=== PATIENT | male | born 1950 | race African-American/Black ===

== ENCOUNTER 2017-08-24 12:07 | Inpatient (IN) | payer OTHER ==
[~2017-08-24] VITALS: Ht 165.1 cm; Wt 87.2 kg
[2017-08-24] VITALS (9 sets, daily range): BP systolic 117–138; BP diastolic 65–82
[~2017-08-24 12:07] MED LIST: ADVIL,NUPRIN,M200 MG PO; Colace PO; GLIMEPIRIDE1 MG PO; Hydrodiuril,Oretic,E PO; JANUMET 50/11 TABLET PO; LANTUS 3 M100 UNITS1 SC; LISINOPRIL20 MG PO; MELOXICAM7.5 MG PO; MICROZIDE12.5 M1 PO; MOBIC15 MG PO; NOVOLOG PE100 UNITS/ SC; Oscal 500 w/Vitamin PO; PERCOCET 5/31 TABLET PO; Plavix PO; SIMVASTATIN20 MG PO; TYLENOL REGULA325 MG PO; ZESTRIL20 MG PO; ZOCOR20 MG PO
[2017-08-24 12:36] LABS: BASOPHIL (%) 0.4 % (0-1); EOSINOPHIL (%) 0.4 % (0-5); HEMATOCRIT 48.6 % (38.0-50.0); HEMOGLOBIN 16.7 G/DL (12.5-16.6); IMMATURE GRANULOCYTE (%) 0.6 % (0.0-0.7); LYMPHOCYTE (%) 21.1 % (15-42); LYMPHOCYTE COUNT 1.1 K/uL (1.0-2.8); MCH 29.2 PG (29.0-34.0); MCHC 34.4 G/DL (30.0-36.0); MCV 85.1 FL (86-99); MONOCYTE (%) 11.7 % (3-12); MONOCYTE COUNT 0.6 K/uL (0-0.8); NEUTROPHIL (%) 65.8 % (45-76); NEUTROPHIL COUNT 3.4 K/uL (1.8-6.4); PLATELET COUNT 184 K/uL (156-360); RBC DIS.WIDTH-CV 15.9 % (11.8-14.6); RBC DIS.WIDTH-SD 49.4 % (39-53); RED BLOOD COUNT 5.71 M/uL (4.00-5.50); WHITE BLOOD COUNT 5.2 K/uL (4.1-10.2)
[2017-08-24 12:47] LABS: ALBUMIN 4.2 g/dL (3.2-4.8); CHLORIDE 103 mEq/L (99-109); POTASSIUM 4.1 mEq/L (3.7-5.4); SODIUM 136 mEq/L (136-147)
[2017-08-24 12:49] LABS: GLUCOSE 113 mg/dL (70-99); TOTAL PROTEIN 7.5 g/dL (6.4-8.3)
[2017-08-24 12:51] LABS: TOTAL BILIRUBIN 0.4 mg/dL (0.0-1.0)
[2017-08-24 12:53] LABS: ALKALINE PHOSPHATASE 47 IU/L (3-129); CREATININE 1.3 mg/dL (0.6-1.3); GFR ESTIMATE (CALCULATED) > 59 mL/min/ (58.99-99999)
[2017-08-24 12:54] LABS: UREA NITROGEN (BUN) 15 mg/dL (9-23)
[2017-08-24 12:55] LABS: AST (GOT) 32 IU/L (2-34)
[2017-08-24 12:56] LABS: ALT (GPT) 16 IU/L (3-49)
[2017-08-24 12:57] LABS: TROP-I INTERPRETATION POSITIVE
[2017-08-24 12:58] LABS: TROPONIN-I 4.06 ng/mL (0.0-0.30)
[2017-08-24 18:41] LABS: TROP-I INTERPRETATION POSITIVE; TROPONIN-I 12.26 ng/mL (0.0-0.30)
[2017-08-25] VITALS (19 sets, daily range): BP systolic 108–148; BP diastolic 58–96
[2017-08-25 06:24] LABS: BASOPHIL (%) 0.5 % (0-1); EOSINOPHIL (%) 0.3 % (0-5); HEMATOCRIT 45.6 % (38.0-50.0); HEMOGLOBIN 15.4 G/DL (12.5-16.6); IMMATURE GRANULOCYTE (%) 0.3 % (0.0-0.7); LYMPHOCYTE (%) 24.4 % (15-42); LYMPHOCYTE COUNT 1.5 K/uL (1.0-2.8); MCH 28.5 PG (29.0-34.0); MCHC 33.8 G/DL (30.0-36.0); MCV 84.4 FL (86-99); MONOCYTE (%) 16.6 % (3-12); MONOCYTE COUNT 1.1 K/uL (0-0.8); NEUTROPHIL (%) 57.9 % (45-76); NEUTROPHIL COUNT 3.7 K/uL (1.8-6.4); PLATELET COUNT 167 K/uL (156-360); RBC DIS.WIDTH-CV 15.9 % (11.8-14.6); RBC DIS.WIDTH-SD 48.9 % (39-53); WHITE BLOOD COUNT 6.3 K/uL (4.1-10.2)
[2017-08-25 06:56] LABS: TROP-I INTERPRETATION POSITIVE; TROPONIN-I 22.48 ng/mL (0.0-0.30)
[2017-08-25 07:09] LABS: CHLORIDE 100 MEQ/L (99-109); CREATININE 1.1 MG/DL (0.6-1.3); GFR ESTIMATE (CALCULATED) > 59 mL/min/ (58.99-99999); GLUCOSE 121 mg/dL (70-99); HDL CHOLESTEROL 24 MG/DL (Desirable>=40); LDL CHOLESTEROL 133 mg/dL (Desirable<100); NON-HDL CHOLESTEROL 153 mg/dL (Desirable<160); SODIUM 136 MEQ/L (136-147); TOTAL CHOLESTEROL 177 mg/dL (Desirable<200); TRIGLYCERIDES 102 MG/DL (Normal: <150); UREA NITROGEN (BUN) 16 mg/dL (9-23)
[2017-08-25 13:30] LABS: TROP-I INTERPRETATION POSITIVE; TROPONIN-I 16.63 ng/mL (0.0-0.30)
[2017-08-26 04:28] VITALS: BP 140/81
[2017-08-26 05:53] LABS: CHLORIDE 99 MEQ/L (99-109); CREATININE 1.2 MG/DL (0.6-1.3); GFR ESTIMATE (CALCULATED) > 59 mL/min/ (58.99-99999); GLUCOSE 169 mg/dL (70-99); POTASSIUM 4.2 MEQ/L (3.7-5.4); SODIUM 133 MEQ/L (136-147); UREA NITROGEN (BUN) 19 mg/dL (9-23)
[2017-08-26 07:45] VITALS: BP 135/75
[2017-08-26] MEDS ORDERED: CLOPIDOGREL75 MG PO (09:16)
[2017-08-26] MEDS ORDERED: LOPRESSOR25 MG PO (09:16)
[2017-08-26] MEDS ORDERED: ATORVASTATIN CA80 MG PO (09:16)
[2017-08-26] MEDS ORDERED: NICOTINE PATCH1 EAC2 TD (09:16)
[2017-08-26] MEDS ORDERED: ASPIR-LOW81 MG PO (09:16)
== END 2017-08-26 10:40 | disposition home or self-care (01) | DRG 247 ==
LOC: EME 12:07 → CATH 12:48 → 2SOUTH 13:52 → 4WEST 13:52 → ENRESERV 13:53 → CANRESERV 13:53 → ENRESERV 13:57 → 2SOUTH 14:11 → 4WEST 15:25 → ENRESERV 08-25 16:18 → 4EAST 08-25 20:02 → ENPENDDIS 08-26 → 4EAST 08-26 10:40
PROVIDERS: Emergency Medicine Emergency Medical Services; Internal Medicine Cardiovascular Disease
DX: I21.4 Non-ST elevation (NSTEMI) myocardial infarction (principal); I25.10 Atherosclerotic heart disease of native coronary artery without angina pectoris; E78.5 Hyperlipidemia, unspecified; F17.200 Nicotine dependence, unspecified, uncomplicated; I10 Essential (primary) hypertension; Z86.73 Personal history of transient ischemic attack (TIA), and cerebral infarction without residual deficits; E11.9 Type 2 diabetes mellitus without complications; I34.0 Nonrheumatic mitral (valve) insufficiency; I45.10 Unspecified right bundle-branch block; K21.9 Gastro-esophageal reflux disease without esophagitis; R09.02 Hypoxemia; E66.9 Obesity, unspecified; Z68.36 Body mass index [BMI] 36.0-36.9, adult
CPT/HCPCS: 71045; 80048; 80053; 80061; 82948; 83880; 84484; 85025; 85347; 87641; 93005; 93306; 94799; 99281; 99285; C1725; C1769; C1874; C1887; J0153; J1644; J1815; J1940; J2250; J2270; J3010; J3246

== ENCOUNTER 2017-11-23 17:20 | Inpatient (IN) | payer OTHER ==
[~2017-11-23] VITALS: Ht 160 cm; Wt 88.2 kg
[~2017-11-23 17:20] MED LIST changes: +ASPIR-LOW81 MG PO; +ATORVASTATIN CA80 MG PO; +CLOPIDOGREL75 MG PO; +LOPRESSOR25 MG PO; +NICOTINE PATCH1 EAC2 TD
[2017-11-23 18:17] LABS: BASOPHIL COUNT 0.1 K/uL (0-0.1); EOSINOPHIL (%) 1.6 % (0-5); EOSINOPHIL COUNT 0.1 K/uL (0-0.3); HEMATOCRIT 48.5 % (38.0-50.0); HEMOGLOBIN 16.4 G/DL (12.5-16.6); IMMATURE GRANULOCYTE (%) 0.4 % (0.0-0.7); LYMPHOCYTE COUNT 1.9 K/uL (1.0-2.8); MCH 28.2 PG (29.0-34.0); MCHC 33.8 G/DL (30.0-36.0); MCV 83.5 FL (86-99); MONOCYTE (%) 12.1 % (3-12); MONOCYTE COUNT 0.6 K/uL (0-0.8); NEUTROPHIL (%) 47.9 % (45-76); NEUTROPHIL COUNT 2.4 K/uL (1.8-6.4); PLATELET COUNT 181 K/uL (156-360); RBC DIS.WIDTH-CV 18.5 % (11.8-14.6); RBC DIS.WIDTH-SD 53.9 % (39-53); RED BLOOD COUNT 5.81 M/uL (4.00-5.50); WHITE BLOOD COUNT 5.1 K/uL (4.1-10.2)
[2017-11-23 18:25] LABS: ALBUMIN 4.1 g/dL (3.2-4.8); CHLORIDE 107 mEq/L (99-109); SODIUM 139 mEq/L (136-147)
[2017-11-23 18:27] LABS: GLUCOSE 119 mg/dL (70-99)
[2017-11-23 18:28] LABS: TOTAL PROTEIN 7.2 g/dL (6.4-8.3)
[2017-11-23 18:29] LABS: TOTAL BILIRUBIN 0.5 mg/dL (0.0-1.0)
[2017-11-23 18:31] LABS: ALKALINE PHOSPHATASE 58 IU/L (3-129); GFR ESTIMATE (CALCULATED) > 59 mL/min/ (58.99-99999)
[2017-11-23 18:32] LABS: UREA NITROGEN (BUN) 11 mg/dL (9-23)
[2017-11-23 18:33] LABS: AST (GOT) 11 IU/L (2-34)
[2017-11-23 18:34] LABS: ALT (GPT) 11 IU/L (3-49)
[2017-11-23 18:40] LABS: TROP-I INTERPRETATION NEGATIVE; TROPONIN-I < 0.01 ng/mL (0.0-0.30)
[2017-11-23 19:58] LABS: APPEARANCE CLEAR ((CLEAR)); BILIRUBIN NEGATIVE; BLOOD NEGATIVE; COLOR YELLOW ((YELLOW)); GLUCOSE (STRIP) 50; KETONES NEGATIVE; LEUKOCYTES NEGATIVE; NITRITE NEGATIVE; PROTEIN (STRIP) 100
[2017-11-23 20:00] LABS: BACTERIA RARE /HPF; EPITHELIAL CELLS RARE /HPF; MUCUS TRACE /LPF; RED BLOOD CELLS 0-5 /HPF (0-5); UCUL ADDED? NO; WHITE BLOOD CELLS 0-5 /HPF (0-5)
[2017-11-23 21:11] LABS: MAGNESIUM 1.8 mg/dL (1.3-2.7)
[2017-11-23 21:16] LABS: SERUM ETHYL ALCOHOL < 10 mg/dL
[2017-11-23 21:29] LABS: AMPHETAMINE NEGATIVE (500 ng/mL); BARBITURATES NEGATIVE (200 ng/mL); BENZODIAZEPINES NEGATIVE (150 ng/mL); BUPRENORPHINE NEGATIVE (10 ng/mL); COCAINE NEGATIVE (150 ng/mL); METHADONE NEGATIVE (200 ng/mL); METHAMPHETAMINE NEGATIVE (500 ng/mL); OPIATES (MORPHINE) NEGATIVE (100 ng/mL); OXYCODONE NEGATIVE (100 ng/mL); PHENCYCLIDINE NEGATIVE (25 ng/mL); PROPOXYPHENE NEGATIVE (300 ng/mL); THC CANNABINOIDS PRESUMPTIVE POSITIVE (50 ng/mL); TRICYCLIC ANTIDEPRESSANTS NEGATIVE (300 ng/mL)
[2017-11-23 22:25] VITALS: BP 155/74
[2017-11-23 22:55] LABS: HDL CHOLESTEROL 30 MG/DL (Desirable>=40); LDL CHOLESTEROL 81 mg/dL (Desirable<100); NON-HDL CHOLESTEROL 94 mg/dL (Desirable<160); TOTAL CHOLESTEROL 124 mg/dL (Desirable<200); TRIGLYCERIDES 66 MG/DL (Normal: <150)
[2017-11-24] MEDS ORDERED: METFORMIN HCL1000 MG PO (02:07)
[2017-11-24] MEDS ORDERED: AMLODIPINE BESY10 MG PO (02:10)
[2017-11-24] MEDS ORDERED: FENOFIBRATE54 M1 PO (02:11)
[2017-11-24] MEDS ORDERED: NOVOLIN N100 UNITS/ SC (02:18)
[2017-11-24] MEDS ORDERED: TRESIBA FL100 UNIT/1 SC (02:19)
[2017-11-24] MEDS ORDERED: NOVOLOG 10100 UNITS/ SC (02:20)
[2017-11-24] MEDS ORDERED: LYRICA75 MG PO (02:20)
[2017-11-24 04:21] VITALS: BP 166/76
[2017-11-24 05:34] LABS: TROP-I INTERPRETATION NEGATIVE; TROPONIN-I < 0.01 ng/mL (0.0-0.30)
[2017-11-24 07:15] VITALS: BP 158/74
[2017-11-24 12:21] VITALS: BP 157/72
[2017-11-24 15:28] VITALS: BP 151/80
[2017-11-24 16:12] VITALS: BP 159/74
[2017-11-24 19:36] VITALS: BP 165/79
[2017-11-25 00:05] VITALS: BP 151/70
[2017-11-25 04:25] VITALS: BP 164/79
[2017-11-25 05:49] LABS: HEMATOCRIT 45.2 % (38.0-50.0); MCHC 33.2 G/DL (30.0-36.0); MCV 84.3 FL (86-99); PLATELET COUNT 174 K/uL (156-360); RBC DIS.WIDTH-CV 18.5 % (11.8-14.6); RBC DIS.WIDTH-SD 55.6 % (39-53); RED BLOOD COUNT 5.36 M/uL (4.00-5.50); WHITE BLOOD COUNT 4.8 K/uL (4.1-10.2)
[2017-11-25 06:18] LABS: CHLORIDE 104 MEQ/L (99-109); CREATININE 1.1 MG/DL (0.6-1.3); GFR ESTIMATE (CALCULATED) > 59 mL/min/ (58.99-99999); SODIUM 136 MEQ/L (136-147); UREA NITROGEN (BUN) 16 mg/dL (9-23)
[2017-11-25 06:20] LABS: GLUCOSE 235 mg/dL (70-99)
[2017-11-25 07:50] VITALS: BP 145/68
[2017-11-25 12:05] VITALS: BP 139/71
[2017-11-25] MEDS ORDERED: NICOTINE PATCH1 EAC2 TD (15:24)
[2017-11-25 16:19] VITALS: BP 159/72
== END 2017-11-25 16:52 | disposition home or self-care (01) | DRG 65 ==
LOC: EME 17:20 → EDOF 20:47 → 4SOUTH 20:47 → ENRESERV 21:05 → 4SOUTH 22:19 → ENRESERV 11-24 12:08 → 5SOUTH 11-24 15:55 → ENPENDDIS 11-25 15:44 → 5SOUTH 11-25 16:52
PROVIDERS: Emergency Medicine; Hospitalist; Internal Medicine; Physician Assistant Medical
DX: I63.9 Cerebral infarction, unspecified (principal); R42 Dizziness and giddiness; E11.9 Type 2 diabetes mellitus without complications; K21.9 Gastro-esophageal reflux disease without esophagitis; I10 Essential (primary) hypertension; E78.5 Hyperlipidemia, unspecified; F17.210 Nicotine dependence, cigarettes, uncomplicated; I25.10 Atherosclerotic heart disease of native coronary artery without angina pectoris; M48.061 Spinal stenosis, lumbar region without neurogenic claudication; I71.4 Abdominal aortic aneurysm, without rupture; J44.9 Chronic obstructive pulmonary disease, unspecified; E66.9 Obesity, unspecified; G47.33 Obstructive sleep apnea (adult) (pediatric); F10.11 Alcohol abuse, in remission; M10.9 Gout, unspecified; I45.2 Bifascicular block; D45 Polycythemia vera; I25.2 Old myocardial infarction; Z95.5 Presence of coronary angioplasty implant and graft; Z79.4 Long term (current) use of insulin; Z79.82 Long term (current) use of aspirin; Z79.02 Long term (current) use of antithrombotics/antiplatelets; Z68.34 Body mass index [BMI] 34.0-34.9, adult
CPT/HCPCS: 70450; 70544; 70546; 70551; 71046; 80048; 80053; 80061; 81003; 82948; 83036; 83735; 84484; 84999; 85025; 85027; 93005; 93306; 93880; 99202; 99281; 99285; G0378; G0480; J1644; J1815; J7030

== ENCOUNTER 2017-12-18 17:44 | Inpatient (IN) | payer OTHER ==
[~2017-12-18] VITALS: Ht 165.1 cm; Wt 90.2 kg
[~2017-12-18 17:44] MED LIST changes: +AMLODIPINE BESY10 MG PO; +FENOFIBRATE54 M1 PO; -LISINOPRIL20 MG PO; +LYRICA75 MG PO; +METFORMIN HCL1000 MG PO; +NOVOLIN N100 UNITS/ SC; +NOVOLOG 10100 UNITS/ SC; +TRESIBA FL100 UNIT/1 SC; +ZESTRIL40 MG PO
[2017-12-18 18:00] LABS: BASOPHIL (%) 0.8 % (0-1); BASOPHIL COUNT 0.1 K/uL (0-0.1); EOSINOPHIL (%) 1.2 % (0-5); EOSINOPHIL COUNT 0.1 K/uL (0-0.3); HEMATOCRIT 44.9 % (38.0-50.0); HEMOGLOBIN 15.2 G/DL (12.5-16.6); IMMATURE GRANULOCYTE (%) 0.5 % (0.0-0.7); LYMPHOCYTE (%) 22.9 % (15-42); LYMPHOCYTE COUNT 1.5 K/uL (1.0-2.8); MCH 28.4 PG (29.0-34.0); MCHC 33.9 G/DL (30.0-36.0); MCV 83.8 FL (86-99); MONOCYTE (%) 11.7 % (3-12); MONOCYTE COUNT 0.8 K/uL (0-0.8); NEUTROPHIL (%) 62.9 % (45-76); NEUTROPHIL COUNT 4.1 K/uL (1.8-6.4); PLATELET COUNT 187 K/uL (156-360); RBC DIS.WIDTH-CV 17.6 % (11.8-14.6); RBC DIS.WIDTH-SD 53.4 % (39-53); RED BLOOD COUNT 5.36 M/uL (4.00-5.50); WHITE BLOOD COUNT 6.5 K/uL (4.1-10.2)
[2017-12-18 18:05] LABS: INTER. NORMALIZED RATIO 1.1
[2017-12-18 18:09] LABS: ALBUMIN 4.1 g/dL (3.2-4.8); CHLORIDE 103 mEq/L (99-109); POTASSIUM 3.9 mEq/L (3.7-5.4); SODIUM 139 mEq/L (136-147)
[2017-12-18 18:10] LABS: AMYLASE 37 IU/L (1-118)
[2017-12-18 18:12] LABS: GLUCOSE 138 mg/dL (70-99); TOTAL PROTEIN 7.1 g/dL (6.4-8.3)
[2017-12-18 18:14] LABS: TOTAL BILIRUBIN 0.5 mg/dL (0.0-1.0)
[2017-12-18 18:15] LABS: ALKALINE PHOSPHATASE 57 IU/L (3-129); GFR ESTIMATE (CALCULATED) > 59 mL/min/ (58.99-99999)
[2017-12-18 18:16] LABS: UREA NITROGEN (BUN) 14 mg/dL (9-23)
[2017-12-18 18:17] LABS: AST (GOT) 16 IU/L (2-34)
[2017-12-18 18:18] LABS: ALT (GPT) 11 IU/L (3-49)
[2017-12-18 18:19] LABS: LIPASE 24 U/L (1.0-51.0)
[2017-12-18 18:26] LABS: TROP-I INTERPRETATION NEGATIVE; TROPONIN-I 0.02 ng/mL (0.0-0.30)
[2017-12-18 19:04] LABS: APPEARANCE CLEAR ((CLEAR)); BILIRUBIN NEGATIVE; BLOOD NEGATIVE; COLOR YELLOW ((YELLOW)); GLUCOSE (STRIP) 50; KETONES NEGATIVE; LEUKOCYTES NEGATIVE; NITRITE NEGATIVE; PROTEIN (STRIP) 100; SPECIFIC GRAVITY 1.018 (1.000-1.030); UROBILINOGEN 0.2 MG/DL (0.2-1.0)
[2017-12-18 19:07] LABS: BACTERIA RARE /HPF; EPITHELIAL CELLS RARE /HPF; MUCUS NONE SEEN /LPF; RED BLOOD CELLS 0-5 /HPF (0-5); UCUL ADDED? NO; WHITE BLOOD CELLS 0-5 /HPF (0-5)
[2017-12-18 19:41] LABS: AMPHETAMINE NEGATIVE (500 ng/mL); BARBITURATES NEGATIVE (200 ng/mL); BENZODIAZEPINES NEGATIVE (150 ng/mL); BUPRENORPHINE NEGATIVE (10 ng/mL); COCAINE NEGATIVE (150 ng/mL); METHADONE NEGATIVE (200 ng/mL); METHAMPHETAMINE NEGATIVE (500 ng/mL); OPIATES (MORPHINE) NEGATIVE (100 ng/mL); OXYCODONE NEGATIVE (100 ng/mL); PHENCYCLIDINE NEGATIVE (25 ng/mL); PROPOXYPHENE NEGATIVE (300 ng/mL); THC CANNABINOIDS NEGATIVE (50 ng/mL); TRICYCLIC ANTIDEPRESSANTS NEGATIVE (300 ng/mL)
[2017-12-18] MEDS ORDERED: LO-DOSE ASPIRIN81 M2 PO (19:49)
[2017-12-18] MEDS ORDERED: LIPITOR80 MG PO (19:50)
[2017-12-18] MEDS ORDERED: PLAVIX75 MG PO (19:50)
[2017-12-18] MEDS ORDERED: LOPRESSOR25 MG PO (19:53)
[2017-12-18] MEDS ORDERED: PRILOSEC20 MG PO (19:53)
[2017-12-18 22:59] VITALS: BP 173/81
[2017-12-18 23:42] LABS: HDL CHOLESTEROL 25 MG/DL (Desirable>=40); LDL CHOLESTEROL 77 mg/dL (Desirable<100); NON-HDL CHOLESTEROL 93 mg/dL (Desirable<160); TOTAL CHOLESTEROL 118 mg/dL (Desirable<200); TRIGLYCERIDES 80 MG/DL (Normal: <150)
[2017-12-19 03:01] VITALS: BP 144/75
[2017-12-19 07:35] VITALS: BP 142/77
[2017-12-19 12:36] VITALS: BP 153/74
[2017-12-19 16:14] VITALS: BP 134/74
[2017-12-19 20:45] VITALS: BP 142/75
[2017-12-20 00:34] VITALS: BP 175/93
[2017-12-20 04:17] VITALS: BP 137/88
[2017-12-20 09:04] VITALS: BP 142/66
[2017-12-20 16:32] VITALS: BP 127/62
[2017-12-20 19:23] VITALS: BP 154/85
[2017-12-20 23:44] VITALS: BP 147/84
[2017-12-21 04:15] VITALS: BP 147/81
[2017-12-21 06:30] LABS: BASOPHIL (%) 0.8 % (0-1); EOSINOPHIL COUNT 0.1 K/uL (0-0.3); HEMATOCRIT 45.1 % (38.0-50.0); HEMOGLOBIN 14.6 G/DL (12.5-16.6); IMMATURE GRANULOCYTE (%) 0.2 % (0.0-0.7); LYMPHOCYTE (%) 43.1 % (15-42); LYMPHOCYTE COUNT 2.2 K/uL (1.0-2.8); MCH 26.9 PG (29.0-34.0); MCHC 32.4 G/DL (30.0-36.0); MCV 83.2 FL (86-99); MONOCYTE (%) 15.4 % (3-12); MONOCYTE COUNT 0.8 K/uL (0-0.8); NEUTROPHIL (%) 38.5 % (45-76); PLATELET COUNT 209 K/uL (156-360); RBC DIS.WIDTH-CV 17.1 % (11.8-14.6); RED BLOOD COUNT 5.42 M/uL (4.00-5.50); WHITE BLOOD COUNT 5.1 K/uL (4.1-10.2)
[2017-12-21 06:58] LABS: CHLORIDE 107 MEQ/L (99-109); GFR ESTIMATE (CALCULATED) > 59 mL/min/ (58.99-99999); GLUCOSE 105 mg/dL (70-99); MAGNESIUM 1.6 mg/dl (1.3-2.7); POTASSIUM 3.9 MEQ/L (3.7-5.4); SODIUM 141 MEQ/L (136-147); UREA NITROGEN (BUN) 15 mg/dL (9-23)
[2017-12-21 08:12] VITALS: BP 137/72
[2017-12-21 10:19] LABS: HEMOGLOBIN A1c (GLYCOHEMOGLOB) 8.9 % (Below 5.7)
[2017-12-21 11:34] VITALS: BP 145/67
[2017-12-21 15:43] VITALS: BP 123/87
[2017-12-21 19:42] VITALS: BP 138/82
[2017-12-22] VITALS: BP 107/72; BP 121/73
[2017-12-22 04:00] VITALS: BP 131/86
[2017-12-22] MEDS ORDERED: SENNA PLUS TAB1 EACH PO (08:59)
[2017-12-22] MEDS ORDERED: LEVEMIR100 UNIT/2 SC (09:36)
[2017-12-22 09:41] VITALS: BP 147/76
[2017-12-22 12:44] VITALS: BP 121/67
== END 2017-12-22 16:06 | DRG 65 ==
LOC: EME 17:44 → EDOF 21:22 → ENRESERV 21:26 → 4SOUTH 22:39 → 5SOUTH 12-19 11:26 → 4SOUTH 12-19 11:26 → ENRESERV 12-19 11:33 → 5SOUTH 12-19 15:05
PROVIDERS: Emergency Medicine; Hospitalist; Internal Medicine; Physician Assistant
DX: I63.442 Cerebral infarction due to embolism of left cerebellar artery (principal); I45.2 Bifascicular block; I10 Essential (primary) hypertension; J44.9 Chronic obstructive pulmonary disease, unspecified; R09.02 Hypoxemia; I71.4 Abdominal aortic aneurysm, without rupture; E11.65 Type 2 diabetes mellitus with hyperglycemia; G46.3 Brain stem stroke syndrome; K21.9 Gastro-esophageal reflux disease without esophagitis; E78.5 Hyperlipidemia, unspecified; F17.210 Nicotine dependence, cigarettes, uncomplicated; H53.2 Diplopia; I25.10 Atherosclerotic heart disease of native coronary artery without angina pectoris; E66.9 Obesity, unspecified; F10.11 Alcohol abuse, in remission; M10.9 Gout, unspecified; Y90.9 Presence of alcohol in blood, level not specified; J06.9 Acute upper respiratory infection, unspecified; I25.2 Old myocardial infarction; Z86.79 Personal history of other diseases of the circulatory system; Z68.33 Body mass index [BMI] 33.0-33.9, adult; Z95.5 Presence of coronary angioplasty implant and graft; Z79.02 Long term (current) use of antithrombotics/antiplatelets; Z79.4 Long term (current) use of insulin; Z79.82 Long term (current) use of aspirin; Z90.49 Acquired absence of other specified parts of digestive tract; Z82.49 Family history of ischemic heart disease and other diseases of the circulatory system; I65.23 Occlusion and stenosis of bilateral carotid arteries
CPT/HCPCS: 70551; 71045; 74230; 80048; 80053; 80061; 81003; 82150; 82948; 83036; 83690; 83735; 84484; 85025; 85610; 85730; 92526 GN; 92610 GN; 92611 GN; 93005; 93320; 93325; 94640; 94799; 97530 GO; 97530 GP; 99281; 99285; C8925; G0378; J1644; J1815; J1956; J7030; J7040

== ENCOUNTER 2017-12-21 10:36 | Inpatient (IN) | payer OTHER ==
[~2017-12-21] VITALS: Ht 165.1 cm; Wt 85.5 kg
[~2017-12-21 10:36] MED LIST changes: +LIPITOR80 MG PO; +LO-DOSE ASPIRIN81 M2 PO; +PLAVIX75 MG PO; +PRILOSEC20 MG PO
[2017-12-22] MEDS ORDERED: SENNA PLUS TAB1 EACH PO (08:59)
[2017-12-22] MEDS ORDERED: LEVEMIR100 UNIT/2 SC (09:36)
[2017-12-22 16:41] VITALS: BP 138/65
[2017-12-23 00:07] VITALS: BP 153/80
[2017-12-23 03:40] VITALS: BP 120/60
[2017-12-23 05:14] VITALS: BP 173/90
[2017-12-23 06:36] LABS: HEMATOCRIT 44.6 % (38.0-50.0); HEMOGLOBIN 14.7 G/DL (12.5-16.6); MCH 27.5 PG (29.0-34.0); MCV 83.4 FL (86-99); PLATELET COUNT 206 K/uL (156-360); RBC DIS.WIDTH-CV 17.2 % (11.8-14.6); RBC DIS.WIDTH-SD 52.5 % (39-53); RED BLOOD COUNT 5.35 M/uL (4.00-5.50)
[2017-12-23 06:57] LABS: ALBUMIN 3.6 G/DL (3.2-4.8); ALKALINE PHOSPHATASE 47 IU/L (3-129); ALT (GPT) 14 IU/L (3-49); AST (GOT) 14 IU/L (2-34); CHLORIDE 108 MEQ/L (99-109); CREATININE 1.1 MG/DL (0.6-1.3); GFR ESTIMATE (CALCULATED) > 59 mL/min/ (58.99-99999); GLUCOSE 149 mg/dL (70-99); POTASSIUM 4.1 MEQ/L (3.7-5.4); SODIUM 141 MEQ/L (136-147); TOTAL BILIRUBIN 0.6 MG/DL (0.0-1.0); TOTAL PROTEIN 6.7 G/DL (6.4-8.3); UREA NITROGEN (BUN) 19 mg/dL (9-23)
[2017-12-23 08:11] VITALS: BP 118/20
[2017-12-23 14:21] VITALS: BP 127/69
[2017-12-23 15:57] VITALS: BP 136/69
[2017-12-24 05:17] VITALS: BP 120/67
[2017-12-25 04:07] VITALS: BP 147/75
[2017-12-25 15:14] VITALS: BP 133/61
[2017-12-25 17:39] LABS: GLUCOSE 214 mg/dL (70-99)
[2017-12-26 04:18] VITALS: BP 142/68
[2017-12-26 15:29] VITALS: BP 130/67
[2017-12-27 05:01] VITALS: BP 171/79
[2017-12-27 16:02] VITALS: BP 162/72
[2017-12-28 05:19] VITALS: BP 159/68
[2017-12-28 15:11] VITALS: BP 127/59
[2017-12-29 05:57] VITALS: BP 137/70
[2017-12-29 15:06] VITALS: BP 132/63
[2017-12-30 04:45] VITALS: BP 139/66
[2017-12-30 15:31] VITALS: BP 145/71
[2017-12-31 05:18] VITALS: BP 138/69
[2017-12-31 15:35] VITALS: BP 132/69
[2018-01-01 05:12] VITALS: BP 131/60
[2018-01-01 15:35] VITALS: BP 133/64
[2018-01-02 04:29] VITALS: BP 142/67
[2018-01-02 15:44] VITALS: BP 140/66
[2018-01-03 05:05] VITALS: BP 143/67
[2018-01-03 15:43] VITALS: BP 138/69
[2018-01-03 23:31] VITALS: BP 158/66
[2018-01-04 05:20] VITALS: BP 165/77
[2018-01-04 15:22] VITALS: BP 140/72
[2018-01-05 05:36] VITALS: BP 119/60
[2018-01-05 15:11] VITALS: BP 154/79
[2018-01-06 06:48] VITALS: BP 137/67
[2018-01-06 14:22] VITALS: BP 135/67
[2018-01-06 15:24] VITALS: BP 125/63
[2018-01-07 04:59] VITALS: BP 137/83
[2018-01-07 05:26] LABS: BASOPHIL (%) 0.9 % (0-1); EOSINOPHIL (%) 3.1 % (0-5); EOSINOPHIL COUNT 0.1 K/uL (0-0.3); HEMATOCRIT 40.9 % (38.0-50.0); HEMOGLOBIN 13.7 G/DL (12.5-16.6); LYMPHOCYTE (%) 43.1 % (15-42); LYMPHOCYTE COUNT 1.9 K/uL (1.0-2.8); MCH 28.2 PG (29.0-34.0); MCHC 33.5 G/DL (30.0-36.0); MCV 84.3 FL (86-99); MONOCYTE (%) 15.8 % (3-12); MONOCYTE COUNT 0.7 K/uL (0-0.8); NEUTROPHIL (%) 37.1 % (45-76); NEUTROPHIL COUNT 1.7 K/uL (1.8-6.4); PLATELET COUNT 147 K/uL (156-360); RBC DIS.WIDTH-CV 17.5 % (11.8-14.6); RBC DIS.WIDTH-SD 54.2 % (39-53); RED BLOOD COUNT 4.85 M/uL (4.00-5.50); WHITE BLOOD COUNT 4.5 K/uL (4.1-10.2)
[2018-01-07 05:59] LABS: ALBUMIN 3.7 G/DL (3.2-4.8); ALKALINE PHOSPHATASE 37 IU/L (3-129); ALT (GPT) 30 IU/L (3-49); AST (GOT) 18 IU/L (2-34); CHLORIDE 104 MEQ/L (99-109); GFR ESTIMATE (CALCULATED) > 59 mL/min/ (58.99-99999); GLUCOSE 204 mg/dL (70-99); SODIUM 137 MEQ/L (136-147); TOTAL BILIRUBIN 0.5 MG/DL (0.0-1.0); TOTAL PROTEIN 6.2 G/DL (6.4-8.3); UREA NITROGEN (BUN) 13 mg/dL (9-23)
[2018-01-07 16:41] VITALS: BP 161/77
[2018-01-08 05:51] VITALS: BP 147/71
[2018-01-08 15:25] VITALS: BP 132/65
[2018-01-09 05:12] VITALS: BP 148/68
[2018-01-09 15:17] VITALS: BP 135/89
[2018-01-10 05:44] VITALS: BP 150/72
[2018-01-10 15:20] VITALS: BP 147/66
[2018-01-11 05:04] VITALS: BP 137/62
[2018-01-11 15:33] VITALS: BP 129/61
[2018-01-12 05:13] VITALS: BP 131/69
[2018-01-12 16:26] VITALS: BP 131/73
[2018-01-13 04:49] VITALS: BP 136/74
[2018-01-13 06:28] LABS: HEMATOCRIT 41.4 % (38.0-50.0); HEMOGLOBIN 13.9 G/DL (12.5-16.6); MCH 28.5 PG (29.0-34.0); MCHC 33.6 G/DL (30.0-36.0); NRBC (%) 0.4 /100 WBC (0-0); PLATELET COUNT 186 K/uL (156-360); RBC DIS.WIDTH-CV 18.1 % (11.8-14.6); RBC DIS.WIDTH-SD 54.7 % (39-53); RED BLOOD COUNT 4.87 M/uL (4.00-5.50); WHITE BLOOD COUNT 5.1 K/uL (4.1-10.2)
[2018-01-13 06:55] LABS: ALBUMIN 3.9 G/DL (3.2-4.8); ALKALINE PHOSPHATASE 42 IU/L (3-129); ALT (GPT) 31 IU/L (3-49); AST (GOT) 18 IU/L (2-34); CHLORIDE 105 MEQ/L (99-109); CREATININE 1.1 MG/DL (0.6-1.3); GFR ESTIMATE (CALCULATED) > 59 mL/min/ (58.99-99999); GLUCOSE 247 mg/dL (70-99); POTASSIUM 4.2 MEQ/L (3.7-5.4); SODIUM 138 MEQ/L (136-147); TOTAL BILIRUBIN 0.4 MG/DL (0.0-1.0); TOTAL PROTEIN 6.3 G/DL (6.4-8.3); UREA NITROGEN (BUN) 15 mg/dL (9-23)
[2018-01-13] MEDS ORDERED: NICOTINE PATCH1 EAC1 TD (09:35)
[2018-01-13] MEDS ORDERED: LEVEMIR100 UNIT/2 SC (09:35)
[2018-01-13] MEDS ORDERED: STIOLTO RESPIMAT4 GM IH (09:35)
[2018-01-13] MEDS ORDERED: PLAVIX75 MG PO (09:35)
[2018-01-13] MEDS ORDERED: LOPRESSOR25 MG PO (09:36)
[2018-01-13] MEDS ORDERED: FENOFIBRATE54 M1 PO (09:36)
[2018-01-13] MEDS ORDERED: AMLODIPINE BESY10 MG PO (09:36)
[2018-01-13] MEDS ORDERED: METFORMIN HCL1000 MG PO (09:36)
[2018-01-13] MEDS ORDERED: SENNA PLUS TAB1 EACH PO (09:36)
[2018-01-13] MEDS ORDERED: LIPITOR80 MG PO (09:36)
[2018-01-13] MEDS ORDERED: ZESTRIL40 MG PO (09:36)
[2018-01-13] MEDS ORDERED: LO-DOSE ASPIRIN81 M2 PO (09:36)
[2018-01-13 15:33] VITALS: BP 123/65
[2018-01-14 05:17] VITALS: BP 135/67
== END 2018-01-14 11:52 | DRG 57 ==
LOC: 3WEST 10:36 → ENPENDDIS 01-14 → 3WEST 01-14 11:52
PROVIDERS: Physical Medicine & Rehabilitation Pain Medicine; Psychiatry & Neurology Neurology
PROC: F07M0ZZ Range of Motion and Joint Mobility Treatment of Musculoskeletal System - Whole Body (ICD-10-PCS; principal; 2017-12-22)
DX: I69.351 Hemiplegia and hemiparesis following cerebral infarction affecting right dominant side (principal); G46.3 Brain stem stroke syndrome; I69.322 Dysarthria following cerebral infarction; I69.391 Dysphagia following cerebral infarction; R13.13 Dysphagia, pharyngeal phase; H53.2 Diplopia; R27.0 Ataxia, unspecified; R53.1 Weakness; N39.41 Urge incontinence; R30.0 Dysuria; R35.0 Frequency of micturition; J44.9 Chronic obstructive pulmonary disease, unspecified; E11.9 Type 2 diabetes mellitus without complications; M10.9 Gout, unspecified; I25.10 Atherosclerotic heart disease of native coronary artery without angina pectoris; K21.9 Gastro-esophageal reflux disease without esophagitis; N50.812 Left testicular pain; N50.811 Right testicular pain; E78.5 Hyperlipidemia, unspecified; I25.2 Old myocardial infarction; M48.00 Spinal stenosis, site unspecified; M19.90 Unspecified osteoarthritis, unspecified site; F17.210 Nicotine dependence, cigarettes, uncomplicated; G25.81 Restless legs syndrome; K59.00 Constipation, unspecified; I10 Essential (primary) hypertension; I69.320 Aphasia following cerebral infarction
CPT/HCPCS: 71045; 80053; 82947; 82948; 85025; 85027; 87086; 92507 GN; 92523 GN; 92526 GN; 92610 GN; 94640; 94640 76; 97110 GO; 97112 GO; 97530 GP; 99202; A6214; G0515 GN; G0515 GO; J1644; J1815

== ENCOUNTER → 2018-03-14 | Outpatient (CLI) | payer OTHER ==
[~2018-03-14] MED LIST changes: +LEVEMIR100 UNIT/2 SC; +NICOTINE PATCH1 EAC1 TD; +SENNA PLUS TAB1 EACH PO; +STIOLTO RESPIMAT4 GM IH
== END | disposition home or self-care (01) ==
LOC: RAD 13:45
DX: R60.0 Localized edema (principal)
CPT/HCPCS: 93970